=== PATIENT | male | born 1940 | race Caucasian/White ===

== ENCOUNTER 2016-07-25 12:24 | Outpatient (CLI) | payer MEDICARE, MEDICAID | END 2016-07-25 23:59 | DX: E78.5 Hyperlipidemia, unspecified (principal); Z12.5 Encounter for screening for malignant neoplasm of prostate; N40.0 Benign prostatic hyperplasia without lower urinary tract symptoms; D64.9 Anemia, unspecified | CPT/HCPCS: 36415; 80053; 80061; 85025; G0103 ==

== ENCOUNTER 2016-10-06 15:09 | Inpatient (IN) | payer MEDICARE, MEDICAID ==
--- NOTE | 2016-10-06 15:27 | ED Physician Documentation ---
PD HPI GI BLEED - Stated complaint Stated Complaint: RECTAL BLEEDING - Chief complaint Chief Complaint: Abd Pain - History obtained from History obtained from: Patient - History of Present Illness Timing - onset: Yesterday Timing - duration: Days (1) Timing - details: Abrupt onset (onset of dark stool yesterday which continued into today, with now also some red/purple color to it. Having intermittent cramping pains, but no consistent pain. No nausea nor vomiting. Feeling weak and somewhat lightheaded today.) Associated symptoms: Maroon stool, Black/tarry stool, Dizzy. No: Vomiting, Coffee ground emesis, Hematemesis, Constipation, Abdominal pain, Chest pain, Fever, Near syncope / syncope, Loss of appetite, Weight loss Contributing factors: No: Sick contact, Bad food, Travel, Recent antibiotics Similar symptoms before: Has not had sx before Recently seen: Clinic (seen by PMD in office and had digital exam showing blood and dark stool. No hemorrhoids reported.) Review of Systems Constitutional: denies: Fever, Chills Nose: denies: Rhinorrhea / runny nose, Congestion Throat: denies: Sore throat Cardiac: denies: Chest pain / pressure Respiratory: denies: Dyspnea, Cough GI: reports: Bloody / black stool. denies: Abdominal Swelling, Nausea, Vomiting , Constipation : denies: Dysuria, Frequency Neurologic: denies: Near syncope, Altered mental status Endocrine: denies: Weight loss, Easy bruising / bleeding PD PAST MEDICAL HISTORY - Past Medical History Cardiovascular: Hypertension, High cholesterol GI: Colon polyps : Benign prostate hypertrophy, Frequency Derm: Psoriasis - Past Surgical History HEENT: Detached retina repair - Present Medications Home Medications: Ambulatory Orders Medication Instructions Recorded Confirmed Aspirin [Aspir 81] 81 mg PO .FREQ 10/17/12 10/06/16 Multivitamin with Minerals 1 each PO .FREQ 10/17/12 10/06/16 [Myvitalife] [place]-3/Dha/Epa/Fish Oil [Fish Oil 1 each PO .FREQ 10/17/12 10/06/16 1,000 mg Softgel] Pravastatin Sodium 40 mg PO .FREQ 10/17/12 10/06/16 Vit D3-Vit K/Berberine/Hops 1 each PO .FREQ 10/17/12 10/06/16 [Ostera Tablet] hydroCHLOROthiazide [Hydrodiuril] 12.5 mg PO .FREQ 10/17/12 10/06/16 - Allergies Allergies/Adverse Reactions: Allergies Allergy/AdvReac Type Severity Reaction Status Date / Time No Known Drug Allergies Allergy Verified 10/06/16 15:15 PD ED PE NORMAL - Vitals Vital signs reviewed: Yes - General General: Alert and oriented X 3, Well developed/nourished - HEENT HEENT: Ears normal, Moist mucous membranes, Pharynx benign - Neck Neck: Supple, no meningeal sign, No adenopathy, No JVD - Cardiac Cardiac: RRR, No murmur - Respiratory Respiratory: Clear bilaterally - Abdomen Abdomen: Normal bowel sounds, Soft, Non tender, Non distended, No organomegaly - Male Male : Deferred - Rectal Rectal: Deferred (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 ) - Back Back: No CVA TTP - Derm Derm: Normal color, Warm and dry - Extremities Extremities: No tenderness to palpate, Normal ROM s pain, No calf tenderness / cord, Other (1+ edema in right leg, chronic per patient) - Neuro Neuro: Alert and oriented X 3, No motor deficit, Normal speech - Psych Psych: Normal mood, Normal affect Results - Vitals Vitals: Vital Signs - 24 hr 10/06/16 15:14 Temperature 36.5 C Heart Rate 96 Respiratory 18 Rate Blood Pressure 133/79 H O2 Saturation 97 Oxygen O2 Source Room air - Labs Labs: Laboratory Tests 10/06/16 10/06/16 10/06/16 16:00 16:00 16:00 WBC 8.3 RBC 3.32 L Hgb 11.0 L Hct 31.3 L MCV 94.0 MCH 33.0 H MCHC 35.1 RDW 12.4 Plt Count 269 MPV 6.9 L Neut # 5.8 Lymph # 1.8 [place] # 0.6 Eos # 0.1 Baso # 0.0 Absolute Nucleated RBC 0.00 Nucleated RBCs 0.0 Sodium 134 L Potassium 3.5 Chloride 99 L Carbon Dioxide 28 Anion Gap 7.0 BUN 19 Creatinine 0.7 Estimated GFR (MDRD) 110 Glucose 108 H Calcium 8.7 Magnesium 1.7 Total Bilirubin 1.2 H AST 18 ALT 18 Alkaline Phosphatase 53 Total Protein 5.9 L Albumin 3.7 Globulin 2.2 Albumin/Globulin Ratio 1.7 Lipase 15 L Blood Type O POSITIVE Antibody Screen NEGATIVE PD MEDICAL DECISION MAKING - ED course Complexity details: reviewed results, considered differential (Sounds likely upper GI bleed with dark stool and now some blood. Rectal exam done in office did not find hemorrhoids. No abd pain. Prior colonoscopy about 5 years ago showed some polyps and ? diverticula. ), d/w patient Departure - Departure Disposition: ED Place in Observation Clinical Impression: Acute gastrointestinal bleeding Condition: Stable Record reviewed to determine appropriate education?: Yes
[2016-10-06] MEDS ORDERED: SODIUM CHLORIDE 0.9% 1,000 ML IV ONE (15:43)
[2016-10-06] MEDS ORDERED: FAMOTIDINE 20 MG/50 ML 50 ML IV ONE ×2 (15:44→16:06)
[2016-10-06 16:11] LABS: BASOPHILS % (AUTO) 0.2 %; EOSINOPHILS # (AUTO) 0.1 10^3/uL (0.0-0.7); EOSINOPHILS % (AUTO) 0.9 %; HCT - HEMATOCRIT 31.3 % (42.0-52.0); LYMPHOCYTES # (AUTO) 1.8 10^3/uL (1.5-3.5); LYMPHOCYTES % (AUTO) 21.6 %; MEAN CORPUSCULAR HGB CONC 35.1 g/dL (32.0-36.0); MEAN PLATELET VOLUME 6.9 fL (7.4-11.4); MONOCYTES # (AUTO) 0.6 10^3/uL (0.0-1.0); MONOCYTES % (AUTO) 6.8 %; NEUTROPHILS # (AUTO) 5.8 10^3/uL (1.5-6.6); NEUTROPHILS % (AUTO) 70.5 %; RED BLOOD COUNT 3.32 10^6/uL (4.70-6.10); RED CELL DISTRIBUTION WIDTH 12.4 % (12.0-15.0); UNCORRECTED WHITE BLOOD COUNT 8.3 x10^3/uL; WHITE BLOOD COUNT 8.3 x10^3/uL (4.8-10.8)
[2016-10-06 16:21] LABS: ALBUMIN/GLOBULIN RATIO 1.7 (1.0-2.2); BILIRUBIN,TOTAL 1.2 mg/dL (0.2-1.0); CALCIUM 8.7 mg/dL (8.5-10.3); CREATININE 0.7 mg/dL (0.6-1.2); MAGNESIUM 1.7 mg/dL (1.7-2.8); POTASSIUM 3.5 mmol/L (3.5-5.0); TOTAL PROTEIN 5.9 g/dL (6.7-8.2)
[2016-10-06] MEDS ORDERED: SODIUM CHLORIDE FLUSH 0.9% 10 ML SYRINGE IVP PRN (17:38)
[2016-10-06] MEDS ORDERED: SODIUM CHLORIDE 0.9% 1,000 ML IV SCH (18:00)
[2016-10-06 18:03] LABS: BASOPHILS % (AUTO) 0.2 %; EOSINOPHILS # (AUTO) 0.1 10^3/uL (0.0-0.7); EOSINOPHILS % (AUTO) 0.5 %; HCT - HEMATOCRIT 31.2 % (42.0-52.0); HGB - HEMOGLOBIN 10.8 g/dL (14.0-18.0); LYMPHOCYTES # (AUTO) 1.9 10^3/uL (1.5-3.5); LYMPHOCYTES % (AUTO) 18.3 %; MEAN CORPUSCULAR HEMOGLOBIN 32.7 pg (27.0-31.0); MEAN CORPUSCULAR HGB CONC 34.7 g/dL (32.0-36.0); MEAN PLATELET VOLUME 6.8 fL (7.4-11.4); MONOCYTES # (AUTO) 0.6 10^3/uL (0.0-1.0); MONOCYTES % (AUTO) 5.4 %; NEUTROPHILS # (AUTO) 8.1 10^3/uL (1.5-6.6); NEUTROPHILS % (AUTO) 75.6 %; RED BLOOD COUNT 3.32 10^6/uL (4.70-6.10); RED CELL DISTRIBUTION WIDTH 12.6 % (12.0-15.0); UNCORRECTED WHITE BLOOD COUNT 10.7 x10^3/uL; WHITE BLOOD COUNT 10.7 x10^3/uL (4.8-10.8)
[2016-10-06 18:15] LABS: ALBUMIN/GLOBULIN RATIO 1.7 (1.0-2.2); BILIRUBIN,TOTAL 1.6 mg/dL (0.2-1.0); CALCIUM 8.5 mg/dL (8.5-10.3); CREATININE 0.8 mg/dL (0.6-1.2); POTASSIUM 3.7 mmol/L (3.5-5.0); TOTAL PROTEIN 6.1 g/dL (6.7-8.2)
[2016-10-06] MEDS: SODIUM CHLORIDE FLUSH 0.9% 10 ML SYRINGE IVP SCH (19:05)
[2016-10-06] MEDS: PANTOPRAZOLE 40 MG VIAL IV SCH ×2 (19:07→23:38)
--- NOTE | 2016-10-06 19:34 | PROVIDER PROGRESS NOTE ---
Hospitalist Cross-cover Note - Cross-Cover Note Cross-Cover Note: ADdendum to H/P Orthostatic VS obtaine d on admission to floor + orthostatics lying HR 90 150/70 standing HR 118 127/83 Increased IVF rate (NS) to 150 cc/hr
[2016-10-06] MEDS: SODIUM/POTASSIUM/MAG SULFATES 354 ML PREP KIT PO SCH (19:45)
--- NOTE | 2016-10-06 19:46 | HISTORY & PHYSICAL EXAMINATION ---
DATE OF ADMISSION: 10/06/2016 PRIMARY CARE PROVIDER: SUSAN Terry. CHIEF COMPLAINT: Black stools the day prior to admission and black stools mixed with red blood today. 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 He yesterday noticed that his stools were black and in retrospect he thinks perhaps his stools were looser over a few days. Today he noticed that they were black with what he calls obviously blood along with it. In the emergency room, there was report of maroon stool, but the patient called this red. I did not see it myself. He has noticed some modest lightheadedness when he was in the upright position. He denies any shortness of breath, diaphoresis, or chest pain with the blood loss. He has no prior history of a GI bleed. He did have a colon polyp removed in September of 2012, approximately 4 years ago. He is on daily aspirin, baby aspirin, and he occasionally takes a full aspirin just for cardiac protection although he has no CAD history. He denies taking NSAIDs. He is not on any anticoagulants. He does drink alcohol approximately 3 pints of beer daily for many years and an occasional glass of wine. He has never had any known problems with his liver. On presentation to the emergency room he was hemodynamically stable, blood pressure 133/79 with a heart rate of 96. Orthostatics were not checked in the emergency room. His admission lab work was notable for a hemoglobin of 11, creatinine of 31.3 and INR was not obtained. Dr. Yanes of General Surgery was consulted and he will do an endoscopy and colonoscopy tomorrow. PAST MEDICAL HISTORY: 1. Hypertension for which he is on a thiazide diuretic. 2. Hypercholesterolemia. 3. History of colon polyps as above /polypectomy September 2012. 4. Benign prostatic hypertrophy. 5. History of prostate cancer status post brachytherapy in 2008. 6. History of psoriasis. 7. History of irregular heart rate, which he reports is resolved and he has seen a clinical engineering manager for this. 8. 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 MEDICATIONS: 1. Aspirin 81 mg. once daily. 2. Multivitamin once daily. 3. [place] 3 fish oil daily. 4. Pravachol 40 mg. once daily. 5. Vitamin D3 supplement called Ostera which has vitamin D3, vitamin K, Berberine and Hops. 6. Hydrochlorothiazide 12.5 mg. once daily. ALLERGIES: HE HAS NO KNOWN DRUG ALLERGIES. 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 He lives here with his . HABITS: He does as above drink approximately 3 pints of beer daily and occasional glass of wine. He smokes marijuana several times throughout the day. SURGICAL HISTORY: Includes polypectomy and retinal detachment repair and blindness of the right eye. FAMILY HISTORY: Both his parents lived into their 90s. He is uncertain of the actual cause of , one had dementia. There is no history of cancer, coronary artery disease, stroke, or diabetes. REVIEW OF SYSTEMS: He has had possibly a 5 pound weight loss over time, nothing substantial. Denies any fevers, night sweats. 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 CARDIOVASCULAR: He has a history of some sort of arrhythmia which he says has resolved. He is not on any rate control agents or dysrhythmic agent. He has had no chest pain, palpitations, near syncope other than the lightheadedness noted above today. He does have varicose veins on the right leg. RESPIRATORY: No cough, wheezing, or shortness of breath. GASTROINTESTINAL: As per the HPI. GENITOURINARY: He does have some hesitancy with his prior brachytherapy, but no new changes. No dysuria. MUSCULOSKELETAL: No falls, no new weakness. NEUROLOGIC: No weakness, discoordination, or paresthesias. No confusion or memory loss. PSYCHIATRIC: He denies any mood disturbance. ENDOCRINE: No excessive thirst or hunger. HEME: He has not noticed any easy bruising or bleeding. PHYSICAL EXAMINATION: VITAL SIGNS: Afebrile, heart rate 86, blood pressure 148/68, respiratory rate 18 , 99% oxygenation on room air. HEAD, EYES, EARS, NOSE AND THROAT: He is normocephalic, atraumatic. He has long hair in a ponytail. He is wearing glasses. The blindness in the right eye is not evident on exam. His pupils are equal and reactive. Extraocular movements, his eyes track evenly. His oral mucosa is moist. He has his own teeth, upper and lower still. NECK: Supple. Carotids are +2 with no bruit. CARDIAC: His heart has a regular S1, S2 with no murmur, rub or gallop. Peripheries notable for warm. He does have varicosities on the right leg with a TEDS-type sock. CHEST: Clear to auscultation anteriorly and posteriorly and respirations are unlabored. He has no CVA tenderness and no spine tenderness. ABDOMEN: Not obese. He has positive bowel sounds. It is soft, nontender. Liver edge is appreciated, not enlarged and not nodular, nontender. He has no epigastric tenderness. GENITALIA: Not examined. EXTREMITIES: Notable for mild trace to +1 edema on the right with varicose veins. DIAGNOSTIC STUDIES: White count 8.3, hemoglobin 11, hematocrit 31.32, 269,000 platelets. Sodium 134, potassium 3.5, chloride 99, bicarbonate 28, BUN 19, creatinine 0.7, glucose 108, total bilirubin was 1.2 and a subsequent was 1.6, transaminases are normal at 19. AST and ALT 17, total protein 55, albumin 3.8. There are no imaging studies in the emergency room. ASSESSMENT AND PLAN: 1. Gastrointestinal bleed. This is likely a lower source. However, he does drink alcohol and does take daily aspirin so upper is conceivable although there is no elevated BUN. Dr. Yanes will be doing EGD and colonoscopy tomorrow. He will start his bowel prep tonight, he will have clear liquids and then be NPO after midnight. For the gastrointestinal bleed he is hemodynamically stable in the ED although the Hgb11/31.3 is certainly low for a male and may reflect slow chronic loss in addition to the acute loss. He has already received normal saline in the emergency room. We will continue normal saline overnight. Type and cross has been ordered. We will hold his aspirin and orthostatics will be checked on admission for better idea of volume loss. Orthostatics obtained while this was being dictated were positive suggesting active bleeding. HR lying 90 150/70 HR standing 118 BP 127/83. Will increase IVF rate to 150cc/hr and ensure that 2 u are available at all times . confirmed w/ blood bank that T+S was done He will have q.6h. hemoglobin and hematocrit. Orthostatics will be rechecekd in the am. Sending INR, but albumin , and transaminases , bilil do not suggest advanced liver dz. Addendum; INR 1.0 2. Hypertension. It is well controlled at home only on a thiazide diuretic, but that will be held on admission and can be resumed on discharge depending the findings. 3. Alcohol use. He has modest daily use of approximately 3 pints of beer daily. He denies history of withdrawal in the remote past when he did stop for some time. We will, however, start CIWA just in the event that there are any withdrawal symptoms. If the endoscopy reflects gastritis or other possibly alcohol related source, will advocate cessation. 4. Hyperlipidemia. He will continue his Pravachol by the time of discharge. 5. COR STATUS. HE IS A FULL COR. 6. Venous thromboembolism prophylaxis. He will have SCDs, but he is expected to be ambulatory soon after the procedures tomorrow pending findings. JOB #: [id number] EXT JOB #:[id number] JOSÉ ANTONIO
[2016-10-06 21:26] LABS: PT - PROTHROMBIN TIME 11.8 secs (9.9-12.6)
[2016-10-07 00:17] LABS: BASOPHILS % (AUTO) 0.4 %; EOSINOPHILS % (AUTO) 0.4 %; HCT - HEMATOCRIT 25.8 % (42.0-52.0); LYMPHOCYTES # (AUTO) 1.5 10^3/uL (1.5-3.5); LYMPHOCYTES % (AUTO) 19.1 %; MEAN CORPUSCULAR HEMOGLOBIN 32.8 pg (27.0-31.0); MEAN CORPUSCULAR HGB CONC 34.7 g/dL (32.0-36.0); MEAN CORPUSCULAR VOLUME 94.4 fL (80.0-94.0); MEAN PLATELET VOLUME 7.5 fL (7.4-11.4); MONOCYTES # (AUTO) 0.4 10^3/uL (0.0-1.0); MONOCYTES % (AUTO) 5.4 %; NEUTROPHILS # (AUTO) 5.9 10^3/uL (1.5-6.6); NEUTROPHILS % (AUTO) 74.7 %; RED BLOOD COUNT 2.73 10^6/uL (4.70-6.10); RED CELL DISTRIBUTION WIDTH 12.3 % (12.0-15.0); UNCORRECTED WHITE BLOOD COUNT 7.9 x10^3/uL; WHITE BLOOD COUNT 7.9 x10^3/uL (4.8-10.8)
[2016-10-07] MEDS: SODIUM CHLORIDE 0.9% 1,000 ML IV SCH ×4 (02:59→14:24)
[2016-10-07] MEDS: SODIUM/POTASSIUM/MAG SULFATES 354 ML PREP KIT PO SCH (05:04)
[2016-10-07 06:21] LABS: BASOPHILS % (AUTO) 0.2 %; EOSINOPHILS # (AUTO) 0.1 10^3/uL (0.0-0.7); EOSINOPHILS % (AUTO) 1.1 %; HCT - HEMATOCRIT 23.8 % (42.0-52.0); HGB - HEMOGLOBIN 8.2 g/dL (14.0-18.0); LYMPHOCYTES # (AUTO) 1.7 10^3/uL (1.5-3.5); LYMPHOCYTES % (AUTO) 31.8 %; MEAN CORPUSCULAR HEMOGLOBIN 32.4 pg (27.0-31.0); MEAN CORPUSCULAR HGB CONC 34.6 g/dL (32.0-36.0); MEAN CORPUSCULAR VOLUME 93.6 fL (80.0-94.0); MEAN PLATELET VOLUME 7.1 fL (7.4-11.4); MONOCYTES # (AUTO) 0.5 10^3/uL (0.0-1.0); MONOCYTES % (AUTO) 8.4 %; NEUTROPHILS # (AUTO) 3.2 10^3/uL (1.5-6.6); NEUTROPHILS % (AUTO) 58.5 %; RED BLOOD COUNT 2.55 10^6/uL (4.70-6.10); RED CELL DISTRIBUTION WIDTH 12.5 % (12.0-15.0); UNCORRECTED WHITE BLOOD COUNT 5.5 x10^3/uL; WHITE BLOOD COUNT 5.5 x10^3/uL (4.8-10.8)
[2016-10-07] MEDS: SODIUM CHLORIDE FLUSH 0.9% 10 ML SYRINGE IVP SCH ×2 (07:06→08:09)
[2016-10-07] MEDS: PANTOPRAZOLE 40 MG VIAL IV SCH (08:05)
--- NOTE | 2016-10-07 08:31 | PROVIDER PROGRESS NOTE ---
Subjective - Prog Note Date Prog Note Date: 10/07/16 Prog Note Time: 08:30 - Subjective Pt reports feeling: No change (very slightly lightheaded with standing With the prep, BM's have continued to have blood, he feels they are less bloody as the night progressed) Current Medications - Current Medications Current Medications: Active Medications Generic Name Dose Route Start Last Admin Trade Name Freq PRN Reason Stop Dose Admin Sodium Chloride 1,000 mls @ 150 mls/hr 10/06/16 19:34 10/07/16 06:47 Normal Saline 0.9% IV 150 mls/hr .[id number] SHREYAS Administration Pantoprazole Sodium 80 mg 10/06/16 17:49 10/07/16 08:05 Protonix IV 80 mg BID SHREYAS Administration Polyethylene Glycol 17 gm 10/07/16 09:00 Miralax PO DAILY SHREYAS Sodium Chloride 10 ml 10/06/16 17:38 Normal Saline Flush 0.9% IVP PRN PRN NEEDED PER PROVIDER ORDERS Sodium Chloride 10 ml 10/06/16 22:00 10/07/16 08:09 Normal Saline Flush 0.9% IVP 10 ml Q8HR SHREYAS Administration Aspirin [Aspir 81] 81 mg PO .FREQ 10/17/12 Multivitamin with Minerals [Myvitalife] 1 each PO .FREQ 10/17/12 [place]-3/Dha/Epa/Fish Oil [Fish Oil 1,000 mg Softgel] 1 each PO .FREQ 10/17/12 Pravastatin Sodium 40 mg PO .FREQ 10/17/12 Vit D3-Vit K/Berberine/Hops [Ostera Tablet] 1 each PO .FREQ 10/17/12 hydroCHLOROthiazide [Hydrodiuril] 12.5 mg PO .FREQ 10/17/12 Objective - Vital Signs/Intake & Output Reviewed Vital Signs: Yes Vital Signs: Vital Signs x48h Temp Pulse Resp BP Pulse Ox 10/07/16 08:02 123/74 10/07/16 07:53 36.7 C 76 16 123/74 97 10/07/16 05:06 36.7 C 74 16 111/65 97 orthostatics this morning HR lying 76 standing 96 blood pressure lying 120/ standing 113/ Intake & Output: Intake & Output 10/04/16 10/05/16 10/06/16 10/07/16 23:59 23:59 23:59 23:59 Intake Total 1250 1951 Output Total 50 1 Balance 1200 1950 - Objective General Appearance: positive: No acute distress, Other (modest general pallor compared with yesterday) Respiratory: positive: No respiratory distress, Breath sounds nml Cardiovascular: positive: Regular rate & rhythm (no tachycardia) Abdomen: positive: Nml bowel sounds, No distention, Other (some stool from prep seen on bed sheets, brown with surrounding tint of red). negative: Tenderness Skin: positive: Warm, Dry. negative: Diaphoresis Neurologic/Psychiatric: positive: Oriented x3, Mood/affect nml - Lab Results Fish Bones: 10/07/16 12:07 10/06/16 17:59 Other Labs: Lab Results x24hrs 10/07/16 10/07/16 10/06/16 Range/Units 06:05 00:00 17:59 WBC 5.5 7.9 (4.8-10.8) x10^3/uL RBC 2.55 L 2.73 L (4.70-6.10) 10^6/uL Hgb 8.2 L 9.0 L (14.0-18.0) g/dL Hct 23.8 L 25.8 L (42.0-52.0) % MCV 93.6 94.4 H (80.0-94.0) fL MCH 32.4 H 32.8 H (27.0-31.0) pg MCHC 34.6 34.7 (32.0-36.0) g/dL RDW 12.5 12.3 (12.0-15.0) % Plt Count 247 246 (130-450) 10^3/uL MPV 7.1 L 7.5 (7.4-11.4) fL Neut # 3.2 5.9 (1.5-6.6) 10^3/uL Lymph # 1.7 1.5 (1.5-3.5) 10^3/uL [place] # 0.5 0.4 (0.0-1.0) 10^3/uL Eos # 0.1 0.0 (0.0-0.7) 10^3/uL Baso # 0.0 0.0 (0.0-0.1) 10^3/uL Absolute Nucleated RBC 0.00 0.00 x10^3/uL Nucleated RBCs 0.0 0.0 /100WBC PT (9.9-12.6) secs INR (0.8-1.2) Sodium (135-145) mmol/L Potassium (3.5-5.0) mmol/L Chloride (101-111) mmol/L Carbon Dioxide (21-32) mmol/L Anion Gap (6-13) BUN (6-20) mg/dL Creatinine (0.6-1.2) mg/dL Estimated GFR (MDRD) (>89) Glucose (70-100) mg/dL Calcium (8.5-10.3) mg/dL Total Bilirubin (0.2-1.0) mg/dL AST (10-42) IU/L ALT (10-60) IU/L Alkaline Phosphatase (42-121) IU/L Total Protein (6.7-8.2) g/dL Albumin (3.2-5.5) g/dL Globulin (2.1-4.2) g/dL Albumin/Globulin Ratio (1.0-2.2) Blood Type Recheck O POSITIVE 10/06/16 10/06/16 10/06/16 Range/Units 17:59 17:59 17:59 WBC 10.7 (4.8-10.8) x10^3/uL RBC 3.32 L (4.70-6.10) 10^6/uL Hgb 10.8 L (14.0-18.0) g/dL Hct 31.2 L (42.0-52.0) % MCV 94.0 (80.0-94.0) fL MCH 32.7 H (27.0-31.0) pg MCHC 34.7 (32.0-36.0) g/dL RDW 12.6 (12.0-15.0) % Plt Count 298 (130-450) 10^3/uL MPV 6.8 L (7.4-11.4) fL Neut # 8.1 H (1.5-6.6) 10^3/uL Lymph # 1.9 (1.5-3.5) 10^3/uL [place] # 0.6 (0.0-1.0) 10^3/uL Eos # 0.1 (0.0-0.7) 10^3/uL Baso # 0.0 (0.0-0.1) 10^3/uL Absolute Nucleated RBC 0.00 x10^3/uL Nucleated RBCs 0.0 /100WBC PT 11.8 (9.9-12.6) secs INR 1.0 (0.8-1.2) Sodium 135 (135-145) mmol/L Potassium 3.7 (3.5-5.0) mmol/L Chloride 99 L (101-111) mmol/L Carbon Dioxide 27 (21-32) mmol/L Anion Gap 9.0 (6-13) BUN 18 (6-20) mg/dL Creatinine 0.8 (0.6-1.2) mg/dL Estimated GFR (MDRD) 94 (>89) Glucose 115 H (70-100) mg/dL Calcium 8.5 (8.5-10.3) mg/dL Total Bilirubin 1.6 H (0.2-1.0) mg/dL AST 19 (10-42) IU/L ALT 17 (10-60) IU/L Alkaline Phosphatase 55 (42-121) IU/L Total Protein 6.1 L (6.7-8.2) g/dL Albumin 3.8 (3.2-5.5) g/dL Globulin 2.3 (2.1-4.2) g/dL Albumin/Globulin Ratio 1.7 (1.0-2.2) Blood Type Recheck - Diagnostic Imaging Diagnostic Imaging Results: positive: Final report reviewed, Other (discussed result of EGD/colonoscopy w/ Dr. Yanes EGD; trace bleeding gastritis in gastric antrum; multiple biopsies Colonoscopy: SEVERE diverticulosis in transverse colon, sigmoid colon, and descending colon with angulation and colonic narroiwing. no discrete area of active oozing of blood noted.) Assessment/Plan - Problem List (1) GI bleeding Impression: GI bleed persists \Hct drifting down, some of this is dilutional, but clearly still having blood loss modestly orthostatic. Hgb still over 8, no symptoms (other than mild light headed when up), 2 units of blood are available if drifts down closer to 7 or more symptomatic continue PPI IV until results continue IVF at 150cc/hr for EGD/colonoscope today Dr. Yanes discussed results w/ me EGD; no significant findings, perhaps mild gastritis antrum Colonoscope notable for EXTENSIVE diverticuli; no obvious oozing divertic No further bleeding currently, will continue clears overnight reduce Hgb/hct to q 12 IF he has recurrent bleeding, RN to contact hospitalist, and check orthostatics will continue to hold his thiazide If no further bleeding d/c home with repeat colonoscopy with better prep in a few wks If new bleeding, may need transfer for more extensive evaluation including small bowel (? tagged RBC, capusule, in institution that can do intervention eg embolization Qualifiers: GI bleed type/associated pathology: unspecified gastrointestinal hemorrhage type Qualified Code(s): K92.2 - Gastrointestinal hemorrhage, unspecified
[2016-10-07] MEDS: POLYETHYLENE GLYCOL 3350 17 GM PACKET PO SCH (11:15)
[2016-10-07 12:12] LABS: BASOPHILS % (AUTO) 0.4 %; EOSINOPHILS % (AUTO) 0.6 %; HCT - HEMATOCRIT 22.9 % (42.0-52.0); HGB - HEMOGLOBIN 7.9 g/dL (14.0-18.0); LYMPHOCYTES # (AUTO) 1.6 10^3/uL (1.5-3.5); LYMPHOCYTES % (AUTO) 31.6 %; MEAN CORPUSCULAR HEMOGLOBIN 32.5 pg (27.0-31.0); MEAN CORPUSCULAR HGB CONC 34.4 g/dL (32.0-36.0); MEAN CORPUSCULAR VOLUME 94.5 fL (80.0-94.0); MEAN PLATELET VOLUME 6.9 fL (7.4-11.4); MONOCYTES # (AUTO) 0.4 10^3/uL (0.0-1.0); NEUTROPHILS # (AUTO) 2.9 10^3/uL (1.5-6.6); NEUTROPHILS % (AUTO) 59.4 %; RED BLOOD COUNT 2.42 10^6/uL (4.70-6.10); RED CELL DISTRIBUTION WIDTH 12.4 % (12.0-15.0); UNCORRECTED WHITE BLOOD COUNT 4.9 x10^3/uL; WHITE BLOOD COUNT 4.9 x10^3/uL (4.8-10.8)
[2016-10-07] MEDS ORDERED: LACTATED RINGERS 1,000 ML IV ONE (12:13)
[2016-10-07] MEDS ORDERED: BENZOCAINE/TETRACAINE/BUTAMBEN SPRAY 56 GM TOP ONE (12:22)
[2016-10-07] MEDS ORDERED: fentaNYL 100 MCG/2 ML VIAL IVP ONE (12:30)
[2016-10-07] MEDS ORDERED: LIDOCAINE-MPF 2% 5 ML VIAL IM ONE (12:30)
[2016-10-07] MEDS ORDERED: PROPOFOL 200 MG/20 ML VIAL IVP ONE (12:30)
[2016-10-07] MEDS ORDERED: MIDAZOLAM 2 MG/2 ML VIAL IVP ONE (12:30)
[2016-10-07] MEDS ORDERED: SIMETHICONE 40 MG/0.6 ML 30 ML BOTTLE PO ONE (13:19)
[2016-10-08 06:18] LABS: HCT - HEMATOCRIT 20.2 % (42.0-52.0)
[2016-10-08] MEDS: SODIUM CHLORIDE FLUSH 0.9% 10 ML SYRINGE IVP SCH ×3 (06:54→07:24)
[2016-10-08] MEDS: SODIUM CHLORIDE 0.9% 1,000 ML IV SCH ×2 (06:54→06:55)
[2016-10-08] MEDS: POLYETHYLENE GLYCOL 3350 17 GM PACKET PO SCH (07:23)
[2016-10-08] MEDS ORDERED: diphenhydrAMINE 25 MG CAPSULE PO SCH (08:12)
[2016-10-08] MEDS ORDERED: ACETAMINOPHEN 325 MG TABLET PO SCH (08:12)
--- NOTE | 2016-10-08 10:40 | Discharge Plan ---
Discharge Plan Disposition: 01 Home, Self Care Condition: Stable Prescriptions: Ferrous Sulfate 325 mg PO DAILY #30 tablet Diet: Regular (high fiber goal daily BM) Activity Restrictions: No Restrictions Shower Restrictions: No Driving Restrictions: No Weight Bearing: Full Weight Additional Instructions or Follow Up instructions: Gastrointestinal bleeding -Likely lower GI source Work up of GI bleeding included -blood count (hemoglobin hematocrit) -You were anemic at presentation 31.3 (normal for a male is ~ 15/ 45 or higher -With blood loss (and some dilution from IVFluid) your count was 7.0/20.2 and you received 1 unit packed red blood cell transfusion -Your platelets (which clot blood) were normal -you did not have an abnormal clotting time (INR) You had an Endoscopy ; notable only for maybe very mild gastritis (inflammation of stomach lining) which would likely be from alcohol, or aspirin or a combination of the two AND a Colonoscopy that did not identify an obvious active source of bleeding BUT you had MANY diverticuli thru out the colon. These can bleed. (they have an arterial supply , and if and when they do bleed, they can bleed alot.) So these are highly suspect The bowel prep wasnt fully clear (there was still some stool interfering with the view of the colonoscope. It is possible that a polyp was hidden, and you should have a repeat colonoscopy in ~ 3 months. (obviously sooner if you redevelop bleeding, but it you have recurrent bleeding you should go to the hospital anyway.) If you redevelop Black stool, or black sticky stool, or maroon stool or obvious blood in stool or clots return to the ED. The ED would determine if you should be transferred to a larger facility since the initial endoscopy and colonoscopy did not identify an obvious source after discussion with the surgeon stone decorator/ and hospitalist service (depending on what your symptoms and blood count are when here Hold off on HCTZ/hydrochlorthiazide) which is a diuretic/pulls off volume in case bleed resumes follow up with Dr Calvert this week You may need a referral for the repeat colonoscopy Stop aspirin Try to reduce alcohol, if any of your anemia was from chronic loss from inflammed stomach lining No Smoking: If you smoke, Please STOP! Call for help. Follow-up with: Asmita Jaffe ARNP [Primary Care Provider] - 1 Week (Reeval for any suggestion of continued GI blood loss consider recheck hemoglobin/hct ~ 1 week reevaluate blood pressure (we advised holding off on hctz) in case bleed resumes )
[2016-10-08 13:01] LABS: HCT - HEMATOCRIT 24.9 % (42.0-52.0); HGB - HEMOGLOBIN 8.6 g/dL (14.0-18.0); MEAN CORPUSCULAR HGB CONC 34.5 g/dL (32.0-36.0); MEAN CORPUSCULAR VOLUME 92.6 fL (80.0-94.0); MEAN PLATELET VOLUME 6.8 fL (7.4-11.4); RED BLOOD COUNT 2.69 10^6/uL (4.70-6.10); RED CELL DISTRIBUTION WIDTH 13.8 % (12.0-15.0); WHITE BLOOD COUNT 4.8 x10^3/uL (4.8-10.8)
[2016-10-08 13:29] VITALS: BP 149/88
--- NOTE | 2016-10-10 08:37 | DISCHARGE SUMMARY ---
DATE OF ADMISSION: 10/06/2016 DATE OF DISCHARGE: 10/08/2016 PRIMARY CARE PROVIDER: Asmita Jaffe; and Radhames Calvert MD PRINCIPAL DISCHARGE DIAGNOSES 1. Gastrointestinal bleed, likely lower. 2. Acute blood loss anemia. 3. Hypertension. 4. Alcohol use. CONSULTATIONS: Jared Yanes MD, of General Surgery. PROCEDURES 1. Endoscopy. 2. Colonoscopy. DIAGNOSTIC IMAGING STUDIES: None. DIAGNOSTIC LABORATORY STUDIES: Admission hemoglobin and hematocrit were 10.8 and 31.2. White count 10.7. Platelets 298,000. During the course of serial hematocrits, his fermin on 10/08/2016 was 7.0 and 20.2 hemoglobin and hematocrit ; after 1 unit of packed red blood cells 8.6 and 24.9, which was checked approximately 20 minutes after transfusion complete. INR was 1.0. Sodium 134, potassium 3.5, chloride 99, bicarbonate 28, BUN 19, creatinine 0.7, glucose 108. AST and ALT are 18 and 18, total bilirubin 1.2, albumin 3.7, essentially unchanged on a recheck on the evening of 10/06/2016. Cultures for H pylori from the endoscopy are pending. DETAILS OF THE EGD: Trace bleeding gastritis in the gastric antrum. Biopsies obtained and sent for histology. DETAILS OF THE COLONOSCOPY: Severe diverticulitis in the transverse, sigmoid, and descending colon with associated angulation and colonic narrowing. There was no discrete area of active bleeding or blood noted. No signs of active bleeding in the colon were found. Of note, the prep was not ideal with some residual stool. BRIEF HOSPITAL COURSE BY PROBLEM PROBLEM #1: Gastrointestinal bleed. The patient is a 75-year-old white male with no prior history of GI bleeding, who presented to the emergency room after having black stool the day prior to admission and then noticing black stool and some red blood per rectum on the day of presentation. He denied any associated chest pain, shortness of breath, or diaphoresis, although he did feel very mildly lightheaded. Of note, he is not on any antiplatelet agents other than baby aspirin and occasional full-dose aspirin. He does drink, with no lab findings or exam findings suggestive of cirrhosis with an INR of 1.0. Admission hemoglobin and hematocrit were 11 and 31.3, and he was modestly orthostatic on vital signs. He was evaluated by Dr. Jared Yanes of General Surgery, who performed an EGD and colonoscopy with results as above. Although he had extensive diverticula noted in the large bowel, there was no clear stigmata of recent bleed, although they are certainly highly suspect as the source. The slight gastritis in the antrum is the unlikely source of acute bleeding, although he could have some mild chronic blood loss from that area; and of note, his anemia is not microcytic at this time, suggesting this is an acute blood loss. Serial hematocrits were measured, and he did have a consistent decline in his counts and remained mildly orthostatic. Although the bleeding did stop following the endoscopy, there was no further red blood per rectum or melena. Since the patient's hemoglobin did decrease down to 7.0, and we could not identify the source of bleeding, he was highly encouraged to accept the unit of blood once his hemoglobin was 7.0 especially with the risk that the unidentified source of bleeding could start agin.. He was initially resistant to this and somewhat anxious, but after discussion of the risks and benefits, he agreed to a unit and did feel considerably improved regarding his lightheadedness on standing, and his pallor improved. He is aware to hold off on his thiazide diuretic until it is certain that he has not had any further blood loss. He is also aware to stop his aspirin until it is clear that this has not recurred. He is aware that he will need a repeat colonoscopy in approximately 3 months to reevaluate the gut with a better prep. If he has a recurrence of this, given we were unable to find the source of bleeding, depending on his clinical status and the degree of bleeding on a re- presentation, he may need to be referred to an outside center in case this represents a small-bowel bleed. PROBLEM #2: Hypertension. At home he is on a thiazide diuretic. Even though his blood pressure was in a reasonable range at the time of discharge, he is advised to hold off on that in case he has recurrent bleeding to avoid further volume loss. PROBLEM #3: Alcohol use. He does drink approximately 3 pints of beer daily, and he is advised to cut down on that in case the gastritis in the antrum is related. DISCHARGE MEDICATIONS 1. He is to hold his aspirin, which was 81 mg daily. 2. He can continue his Pravachol 40 mg each evening. 3. Wharton-3 acid or Lovaza 1 gram p.o. daily. 4. Multivitamin 1 tablet daily. 5. Cholecalciferol 1000 units daily. 6. Latanoprost 0.005 drops left eye each evening for history of retinal detachment. 7. Patient is advised to start ferrous sulfate 325 mg once daily. FOLLOWUP 1. The patient should follow up with Asmita Jaffe some time next week, at least with a phone call, to have blood pressure reevaluated to see if he can resume his HCTZ. 2. Also would recommend having a repeat hemoglobin and hematocrit in approximately 1 week to ensure stability of his hemoglobin, and if he needs a referral for a repeat colonoscopy for better visualization of his large bowel with a better prep. PHYSICAL EXAMINATION ON THE DAY OF DISCHARGE VITAL SIGNS: He is afebrile 36.4, heart rate 76. Blood pressure 149/88, that is immediately following red cell transfusion. Respiratory rate 16, oxygen 100% on room air. GENERAL: Patient is a pleasant, thin, tall, older gentleman with long hair. This morning he was seen in bed with a general pallor, and following a unit of red cells, he is considerably improved pallor, with more pink in his cheeks. He is alert, oriented, appropriate. He was anxious this morning, following the transfusion is much more relieved following an unremarkable transfusion. HEAD, EARS, EYES, NOSE, AND THROAT: Sclerae are anicteric. CHEST: Clear to auscultation with unlabored respirations. HEART: Regular S1, S2 with no murmur, rub, or gallop. ABDOMEN: Soft, nondistended, nontender; specifically there is no epigastric tenderness. EXTREMITIES: Notable for no edema. JOB #: [id number] EXT JOB #:[id number] [facility]
== END 2016-10-08 13:27 | disposition home or self-care (01) | DRG 378 ==
LOC: ED 15:09 → MS 17:38
PROVIDERS: ADMIT Nurse Practitioner; ATTEND Nurse Practitioner
PROC: 0DJD8ZZ Inspection of Lower Intestinal Tract, Via Natural or Artificial Opening Endoscopic (ICD-10-PCS; 2016-10-07)
PROC: 0DB78ZX Excision of Stomach, Pylorus, Via Natural or Artificial Opening Endoscopic, Diagnostic (ICD-10-PCS; principal; 2016-10-07 12:30)
PROC: 0W3P8ZZ Control Bleeding in Gastrointestinal Tract, Via Natural or Artificial Opening Endoscopic (ICD-10-PCS; 2016-10-07 12:30)
PROC: 30233N1 Transfusion of Nonautologous Red Blood Cells into Peripheral Vein, Percutaneous Approach (ICD-10-PCS; 2016-10-08)
DX: K92.1 Melena (principal); K29.71 Gastritis, unspecified, with bleeding; D62 Acute posthemorrhagic anemia; K57.31 Diverticulosis of large intestine without perforation or abscess with bleeding; I10 Essential (primary) hypertension; I83.91 Asymptomatic varicose veins of right lower extremity; E78.5 Hyperlipidemia, unspecified; N40.1 Benign prostatic hyperplasia with lower urinary tract symptoms; R39.11 Hesitancy of micturition; R35.0 Frequency of micturition; H54.41 Blindness, right eye, normal vision left eye; Z86.79 Personal history of other diseases of the circulatory system; Z79.82 Long term (current) use of aspirin; Z72.89 Other problems related to lifestyle; Z86.010 Personal history of colon polyps; Z85.46 Personal history of malignant neoplasm of prostate
CPT/HCPCS: 36415; 80053; 82270; 83690; 83735; 85014; 85018; 85025; 85610; 86850; 86900; 86901; 86920; 87045; 87046; 87077; 87081; 87493; 88305; 88342; 96365; 99284

== ENCOUNTER 2017-01-11 14:27 | Outpatient (CLI) | payer MEDICARE, MEDICAID ==
[2017-01-11 17:48] LABS: BASOPHILS % (AUTO) 0.5 %; EOSINOPHILS # (AUTO) 0.1 10^3/uL (0.0-0.7); EOSINOPHILS % (AUTO) 2.1 %; HCT - HEMATOCRIT 36.8 % (42.0-52.0); HGB - HEMOGLOBIN 12.1 g/dL (14.0-18.0); LYMPHOCYTES # (AUTO) 1.7 10^3/uL (1.5-3.5); LYMPHOCYTES % (AUTO) 29.4 %; MEAN CORPUSCULAR HEMOGLOBIN 29.3 pg (27.0-31.0); MEAN CORPUSCULAR HGB CONC 32.8 g/dL (32.0-36.0); MEAN CORPUSCULAR VOLUME 89.2 fL (80.0-94.0); MEAN PLATELET VOLUME 7.7 fL (7.4-11.4); MONOCYTES # (AUTO) 0.5 10^3/uL (0.0-1.0); MONOCYTES % (AUTO) 7.9 %; NEUTROPHILS # (AUTO) 3.5 10^3/uL (1.5-6.6); NEUTROPHILS % (AUTO) 60.1 %; RED BLOOD COUNT 4.12 10^6/uL (4.70-6.10); RED CELL DISTRIBUTION WIDTH 14.8 % (12.0-15.0); UNCORRECTED WHITE BLOOD COUNT 5.9 x10^3/uL; WHITE BLOOD COUNT 5.9 x10^3/uL (4.8-10.8)
[2017-01-11 18:12] LABS: ALBUMIN/GLOBULIN RATIO 1.6 (1.0-2.2); BILIRUBIN,TOTAL 0.8 mg/dL (0.2-1.0); CREATININE 0.9 mg/dL (0.6-1.2); POTASSIUM 3.9 mmol/L (3.5-5.0); TOTAL PROTEIN 6.7 g/dL (6.7-8.2)
== END 2017-01-11 14:28 | disposition home or self-care (01) ==
LOC: LAB.F 14:27
PROVIDERS: ATTEND Nurse Practitioner Family
DX: K92.2 Gastrointestinal hemorrhage, unspecified (principal); C61 Malignant neoplasm of prostate
CPT/HCPCS: 36415; 80053; 84153; 84443; 85025

== ENCOUNTER 2017-06-12 08:00 | Outpatient (CLI) | payer MEDICARE, MEDICAID ==
[2017-06-12 18:41] LABS: CREATININE 0.9 mg/dL (0.6-1.2)
== END 2017-06-12 08:01 | disposition home or self-care (01) ==
LOC: LAB.F 08:00
PROVIDERS: ATTEND Physician Assistant Medical
DX: B35.1 Tinea unguium (principal); Z79.899 Other long term (current) drug therapy
CPT/HCPCS: 36415; 82565; 84450; 84460

== ENCOUNTER 2017-07-31 08:00 | Outpatient (CLI) | payer MEDICARE, MEDICAID ==
[2017-07-31 18:30] LABS: BASOPHILS % (AUTO) 0.7 %; EOSINOPHILS # (AUTO) 0.1 10^3/uL (0.0-0.7); HGB - HEMOGLOBIN 13.1 g/dL (14.0-18.0); LYMPHOCYTES # (AUTO) 1.2 10^3/uL (1.5-3.5); LYMPHOCYTES % (AUTO) 25.8 %; MEAN CORPUSCULAR HEMOGLOBIN 31.8 pg (27.0-31.0); MEAN CORPUSCULAR HGB CONC 33.6 g/dL (32.0-36.0); MEAN CORPUSCULAR VOLUME 94.9 fL (80.0-94.0); MEAN PLATELET VOLUME 7.3 fL (7.4-11.4); MONOCYTES # (AUTO) 0.5 10^3/uL (0.0-1.0); MONOCYTES % (AUTO) 10.5 %; NEUTROPHILS # (AUTO) 2.9 10^3/uL (1.5-6.6); PLT - PLATELET COUNT 318 10^3/uL (130-450); RED BLOOD COUNT 4.11 10^6/uL (4.70-6.10); RED CELL DISTRIBUTION WIDTH 13.4 % (12.0-15.0); WHITE BLOOD COUNT 4.8 x10^3/uL (4.8-10.8)
[2017-07-31 18:54] LABS: THYROID STIMULATING HORMONE 1.2 uIU/mL (0.34-5.60)
[2017-07-31 19:01] LABS: % IRON SATURATION 20 % (20-50); ALBUMIN 4.1 g/dL (3.2-5.5); ALBUMIN/GLOBULIN RATIO 1.5 (1.0-2.2); ALKALINE PHOSPHATASE 61 IU/L (42-121); ALT ALANINE AMINOTRANSFERASE 15 IU/L (10-60); AST ASPARTATE AMINOTRANSFERASE 19 IU/L (10-42); BILIRUBIN,TOTAL 1.2 mg/dL (0.2-1.0); BUN - BLOOD UREA NITROGEN 10 mg/dL (6-20); CALCIUM 8.8 mg/dL (8.5-10.3); CARBON DIOXIDE - CO2 29 mmol/L (21-32); CHLORIDE 95 mmol/L (101-111); CHOLESTEROL 179 mg/dL; CREATININE 0.7 mg/dL (0.6-1.2); GFR - MDRD 110 (>89); GLUCOSE 99 mg/dL (70-100); HDL CHOLESTEROL 59 mg/dL; IRON 74 ug/dL (45-182); LDL CHOLESTEROL,CALCULATED 104 mg/dL; LDL/HDL RATIO 1.8 (<3.6); SODIUM 132 mmol/L (135-145); TOTAL IRON BINDING CAPACITY 361 ug/dL (250-450); TOTAL PROTEIN 6.9 g/dL (6.7-8.2); TRANSFERRIN 258 mg/dL (180-329); VLDL CHOLESTEROL 16 mg/dL
== END 2017-07-31 08:01 | disposition home or self-care (01) ==
LOC: LAB.S 08:00
PROVIDERS: ATTEND Nurse Practitioner Family
DX: I10 Essential (primary) hypertension (principal); D64.9 Anemia, unspecified; Z12.5 Encounter for screening for malignant neoplasm of prostate; N40.1 Benign prostatic hyperplasia with lower urinary tract symptoms
CPT/HCPCS: 36415; 80053; 80061; 82607; 83540; 84443; 84466; 85025; G0103; 83721; 84153

== ENCOUNTER 2017-08-08 08:00 | Outpatient (CLI) | payer MEDICARE, MEDICAID | END 2017-08-08 23:59 | LOC: LAB.R 08:00 | PROVIDERS: ATTEND Nurse Practitioner Family | DX: K92.2 Gastrointestinal hemorrhage, unspecified (principal) | CPT/HCPCS: 82270 ==

== ENCOUNTER 2018-08-06 08:00 | Outpatient (CLI) | payer MEDICARE, MEDICAID ==
[2018-08-06 18:10] LABS: BASOPHILS % (AUTO) 0.7 %; EOSINOPHILS # (AUTO) 0.1 10^3/uL (0.0-0.7); EOSINOPHILS % (AUTO) 2.7 %; HGB - HEMOGLOBIN 13.8 g/dL (14.0-18.0); LYMPHOCYTES # (AUTO) 1.5 10^3/uL (1.5-3.5); LYMPHOCYTES % (AUTO) 31.1 %; MEAN CORPUSCULAR HEMOGLOBIN 32.8 pg (27.0-31.0); MEAN CORPUSCULAR HGB CONC 34.6 g/dL (32.0-36.0); MEAN CORPUSCULAR VOLUME 94.9 fL (80.0-94.0); MEAN PLATELET VOLUME 7.7 fL (7.4-11.4); MONOCYTES # (AUTO) 0.5 10^3/uL (0.0-1.0); MONOCYTES % (AUTO) 9.6 %; NEUTROPHILS # (AUTO) 2.7 10^3/uL (1.5-6.6); NEUTROPHILS % (AUTO) 55.9 %; PLT - PLATELET COUNT 328 10^3/uL (130-450); RED CELL DISTRIBUTION WIDTH 12.5 % (12.0-15.0); WHITE BLOOD COUNT 4.8 x10^3/uL (4.8-10.8)
[2018-08-06 18:38] LABS: ALBUMIN 4.1 g/dL (3.2-5.5); ALBUMIN/GLOBULIN RATIO 1.6 (1.0-2.2); ALKALINE PHOSPHATASE 73 IU/L (42-121); ALT ALANINE AMINOTRANSFERASE 21 IU/L (10-60); AST ASPARTATE AMINOTRANSFERASE 25 IU/L (10-42); BILIRUBIN,TOTAL 1.3 mg/dL (0.2-1.0); BUN - BLOOD UREA NITROGEN 9 mg/dL (6-20); CALCIUM 8.7 mg/dL (8.5-10.3); CARBON DIOXIDE - CO2 29 mmol/L (21-32); CHLORIDE 97 mmol/L (101-111); CHOL/HDL RATIO 2.8 (<5.0); CHOLESTEROL 182 mg/dL; CREATININE 0.6 mg/dL (0.6-1.2); GFR - MDRD 131 (>89); GLUCOSE 103 mg/dL (70-100); HDL CHOLESTEROL 65 mg/dL; LDL CHOLESTEROL,CALCULATED 98 mg/dL; LDL/HDL RATIO 1.5 (<3.6); SODIUM 132 mmol/L (135-145); TOTAL PROTEIN 6.7 g/dL (6.7-8.2); VLDL CHOLESTEROL 19 mg/dL
[2018-08-06 18:49] LABS: PSA FREE 0.02 ng/mL (0.16-2.81)
[2018-08-06 18:51] LABS: PSA TOTAL 0.19 ng/mL (0.000-2.000)
[2018-08-06 18:59] LABS: HB2 TOTAL 14.4 g/dL; HEMOGLOBIN A1C 0.57 g/dL; HEMOGLOBIN A1C % 5.8 % (4.6-6.2)
== END 2018-08-06 23:59 | disposition home or self-care (01) ==
LOC: LAB.S 08:00
PROVIDERS: ATTEND Nurse Practitioner Family
DX: I10 Essential (primary) hypertension (principal); R73.01 Impaired fasting glucose; C61 Malignant neoplasm of prostate; L40.9 Psoriasis, unspecified
CPT/HCPCS: 36415; 80053; 80061; 83036; 83721; 84153; 84154; 84443; 85025

== ENCOUNTER 2019-03-14 09:49 | Outpatient (CLI) | payer MEDICARE, MEDICAID ==
[2019-03-14 17:59] LABS: BASOPHILS % (AUTO) 0.6 %; EOSINOPHILS # (AUTO) 0.1 10^3/uL (0.0-0.7); EOSINOPHILS % (AUTO) 2.3 %; HGB - HEMOGLOBIN 13.5 g/dL (14.0-18.0); LYMPHOCYTES # (AUTO) 1.6 10^3/uL (1.5-3.5); LYMPHOCYTES % (AUTO) 31.3 %; MEAN CORPUSCULAR HEMOGLOBIN 32.6 pg (27.0-31.0); MEAN CORPUSCULAR HGB CONC 33.4 g/dL (32.0-36.0); MEAN CORPUSCULAR VOLUME 97.6 fL (80.0-94.0); MEAN PLATELET VOLUME 9.2 fL (7.4-11.4); MONOCYTES # (AUTO) 0.5 10^3/uL (0.0-1.0); NEUTROPHILS % (AUTO) 56.2 %; PLT - PLATELET COUNT 347 10^3/uL (130-450); RED BLOOD COUNT 4.14 10^6/uL (4.70-6.10); RED CELL DISTRIBUTION WIDTH 11.8 % (12.0-15.0); WHITE BLOOD COUNT 5.2 x10^3/uL (4.8-10.8)
[2019-03-14 18:14] LABS: ALBUMIN 4.2 g/dL (3.2-5.5); ALBUMIN/GLOBULIN RATIO 1.7 (1.0-2.2); BILIRUBIN,TOTAL 1.6 mg/dL (0.2-1.0); CALCIUM 8.7 mg/dL (8.5-10.3); CREATININE 0.8 mg/dL (0.6-1.2); TOTAL PROTEIN 6.7 g/dL (6.7-8.2)
[2019-03-14 18:21] LABS: PSA FREE < 0.005 ng/mL (0.16-2.81)
== END 2019-03-14 09:50 | disposition home or self-care (01) ==
LOC: LAB.S 09:49
PROVIDERS: ATTEND Registered Nurse
DX: F10.10 Alcohol abuse, uncomplicated (principal); D64.9 Anemia, unspecified; N40.1 Benign prostatic hyperplasia with lower urinary tract symptoms
CPT/HCPCS: 36415; 80053; 82607; 84153; 84154; 85025

== ENCOUNTER 2019-10-23 10:09 | Outpatient (CLI) | payer MEDICARE, MEDICAID ==
[2019-10-23 15:21] LABS: BASOPHILS % (AUTO) 0.5 %; EOSINOPHILS # (AUTO) 0.1 10^3/uL (0.0-0.7); EOSINOPHILS % (AUTO) 2.2 %; HGB - HEMOGLOBIN 14.1 g/dL (14.0-18.0); LYMPHOCYTES # (AUTO) 1.7 10^3/uL (1.5-3.5); LYMPHOCYTES % (AUTO) 27.9 %; MEAN CORPUSCULAR HEMOGLOBIN 34.3 pg (27.0-31.0); MEAN CORPUSCULAR HGB CONC 34.9 g/dL (32.0-36.0); MEAN CORPUSCULAR VOLUME 98.3 fL (80.0-94.0); MONOCYTES # (AUTO) 0.6 10^3/uL (0.0-1.0); NEUTROPHILS # (AUTO) 3.5 10^3/uL (1.5-6.6); NEUTROPHILS % (AUTO) 58.9 %; PLT - PLATELET COUNT 337 10^3/uL (130-450); RED BLOOD COUNT 4.11 10^6/uL (4.70-6.10); RED CELL DISTRIBUTION WIDTH 11.8 % (12.0-15.0); WHITE BLOOD COUNT 5.9 x10^3/uL (4.8-10.8)
[2019-10-23 15:50] LABS: CALCIUM 8.6 mg/dL (8.5-10.3); CREATININE 0.8 mg/dL (0.6-1.2)
== END 2019-10-23 10:10 | disposition home or self-care (01) ==
LOC: LAB.S 10:09
PROVIDERS: ATTEND Registered Nurse
DX: I10 Essential (primary) hypertension (principal); D64.9 Anemia, unspecified; E78.5 Hyperlipidemia, unspecified
CPT/HCPCS: 36415; 80048; 85025

== ENCOUNTER 2020-06-15 10:45 | Outpatient (CLI) | payer MEDICARE, MEDICAID ==
[2020-06-15 15:04] LABS: BASOPHILS % (AUTO) 0.5 %; EOSINOPHILS # (AUTO) 0.1 10^3/uL (0.0-0.7); EOSINOPHILS % (AUTO) 1.3 %; LYMPHOCYTES # (AUTO) 1.6 10^3/uL (1.5-3.5); LYMPHOCYTES % (AUTO) 25.7 %; MEAN CORPUSCULAR HEMOGLOBIN 33.2 pg (27.0-31.0); MEAN CORPUSCULAR HGB CONC 34.9 g/dL (32.0-36.0); MEAN PLATELET VOLUME 8.7 fL (7.4-11.4); MONOCYTES # (AUTO) 0.6 10^3/uL (0.0-1.0); MONOCYTES % (AUTO) 10.1 %; NEUTROPHILS # (AUTO) 3.8 10^3/uL (1.5-6.6); NEUTROPHILS % (AUTO) 61.9 %; PLT - PLATELET COUNT 379 10^3/uL (130-450); RED BLOOD COUNT 4.22 10^6/uL (4.70-6.10); RED CELL DISTRIBUTION WIDTH 11.3 % (12.0-15.0); WHITE BLOOD COUNT 6.1 x10^3/uL (4.8-10.8)
[2020-06-15 15:17] LABS: ALBUMIN 4.1 g/dL (3.2-5.5); ALBUMIN/GLOBULIN RATIO 1.6 (1.0-2.2); ALKALINE PHOSPHATASE 75 IU/L (42-121); ALT ALANINE AMINOTRANSFERASE 18 IU/L (10-60); AST ASPARTATE AMINOTRANSFERASE 19 IU/L (10-42); BILIRUBIN,TOTAL 1.3 mg/dL (0.2-1.0); BUN - BLOOD UREA NITROGEN 9 mg/dL (6-20); CARBON DIOXIDE - CO2 28 mmol/L (21-32); CHLORIDE 92 mmol/L (101-111); CHOL/HDL RATIO 2.5 (<5.0); CHOLESTEROL 158 mg/dL; CREATININE 0.7 mg/dL (0.6-1.2); GLUCOSE 100 mg/dL (70-100); HDL CHOLESTEROL 64 mg/dL; LDL CHOLESTEROL,CALCULATED 77 mg/dL; LDL/HDL RATIO 1.2 (<3.6); TOTAL PROTEIN 6.7 g/dL (6.7-8.2); VLDL CHOLESTEROL 17 mg/dL
== END 2020-06-15 10:46 | disposition home or self-care (01) ==
LOC: LAB.S 10:45
PROVIDERS: ATTEND Registered Nurse
DX: I10 Essential (primary) hypertension (principal); Z85.46 Personal history of malignant neoplasm of prostate; F10.10 Alcohol abuse, uncomplicated; R73.01 Impaired fasting glucose; D64.9 Anemia, unspecified; E78.5 Hyperlipidemia, unspecified; K92.2 Gastrointestinal hemorrhage, unspecified; N40.1 Benign prostatic hyperplasia with lower urinary tract symptoms; C61 Malignant neoplasm of prostate
CPT/HCPCS: 36415; 80053; 80061; 83721; 84153; 84443; 85025

== ENCOUNTER 2021-01-13 11:01 | Outpatient (CLI) | payer MEDICARE, MEDICAID ==
[2021-01-13 14:42] LABS: BASOPHILS % (AUTO) 0.5 %; EOSINOPHILS # (AUTO) 0.1 10^3/uL (0.0-0.7); EOSINOPHILS % (AUTO) 1.3 %; HCT - HEMATOCRIT 40.9 % (42.0-52.0); HGB - HEMOGLOBIN 13.6 g/dL (14.0-18.0); LYMPHOCYTES # (AUTO) 1.5 10^3/uL (1.5-3.5); MEAN CORPUSCULAR HEMOGLOBIN 32.1 pg (27.0-31.0); MEAN CORPUSCULAR HGB CONC 33.3 g/dL (32.0-36.0); MEAN CORPUSCULAR VOLUME 96.5 fL (80.0-94.0); MEAN PLATELET VOLUME 8.8 fL (7.4-11.4); MONOCYTES # (AUTO) 0.5 10^3/uL (0.0-1.0); MONOCYTES % (AUTO) 9.8 %; NEUTROPHILS # (AUTO) 3.3 10^3/uL (1.5-6.6); NEUTROPHILS % (AUTO) 59.9 %; PLT - PLATELET COUNT 339 10^3/uL (130-450); RED BLOOD COUNT 4.24 10^6/uL (4.70-6.10); WHITE BLOOD COUNT 5.5 x10^3/uL (4.8-10.8)
[2021-01-13 14:45] LABS: CREATININE 0.7 mg/dL (0.6-1.2); POTASSIUM 3.9 mmol/L (3.5-5.0)
[2021-01-13 15:01] LABS: THYROID STIMULATING HORMONE 1.61 uIU/mL (0.34-5.60)
== END 2021-01-13 11:02 | disposition home or self-care (01) ==
LOC: LAB.S 11:01
PROVIDERS: ATTEND Registered Nurse
DX: R53.83 Other fatigue (principal); Z85.46 Personal history of malignant neoplasm of prostate
CPT/HCPCS: 36415; 80048; 84153; 84443; 85025

== ENCOUNTER 2021-08-17 09:53 | Outpatient (CLI) | payer MEDICARE, MEDICAID ==
[2021-08-17 14:58] LABS: CALCIUM 8.6 mg/dL (8.5-10.3); CREATININE 0.7 mg/dL (0.6-1.2); POTASSIUM 4.1 mmol/L (3.5-5.0)
== END 2021-08-17 09:54 | disposition home or self-care (01) ==
LOC: LAB.S 09:53
PROVIDERS: ATTEND Registered Nurse
DX: C61 Malignant neoplasm of prostate (principal); R73.01 Impaired fasting glucose
CPT/HCPCS: 36415; 80048; 84153

== ENCOUNTER 2022-05-03 09:42 | Outpatient (CLI) | payer MEDICARE, MEDICAID ==
[2022-05-03 14:26] LABS: BASOPHILS % (AUTO) 0.6 %; EOSINOPHILS # (AUTO) 0.1 10^3/uL (0.0-0.7); EOSINOPHILS % (AUTO) 2.1 %; HCT - HEMATOCRIT 41.7 % (42.0-52.0); LYMPHOCYTES # (AUTO) 1.7 10^3/uL (1.5-3.5); LYMPHOCYTES % (AUTO) 27.5 %; MEAN CORPUSCULAR HEMOGLOBIN 31.9 pg (27.0-31.0); MEAN CORPUSCULAR HGB CONC 33.6 g/dL (32.0-36.0); MEAN PLATELET VOLUME 8.6 fL (7.4-11.4); MONOCYTES # (AUTO) 0.6 10^3/uL (0.0-1.0); MONOCYTES % (AUTO) 9.8 %; NEUTROPHILS # (AUTO) 3.8 10^3/uL (1.5-6.6); NEUTROPHILS % (AUTO) 59.2 %; PLT - PLATELET COUNT 398 10^3/uL (130-450); RED BLOOD COUNT 4.39 10^6/uL (4.70-6.10); RED CELL DISTRIBUTION WIDTH 11.8 % (12.0-15.0); WHITE BLOOD COUNT 6.3 x10^3/uL (4.8-10.8)
[2022-05-03 15:05] LABS: ALBUMIN 4.3 g/dL (3.2-5.5); ALBUMIN/GLOBULIN RATIO 1.3 (1.0-2.2); ALKALINE PHOSPHATASE 75 IU/L (42-121); ALT ALANINE AMINOTRANSFERASE 25 IU/L (10-60); AST ASPARTATE AMINOTRANSFERASE 27 IU/L (10-42); BILIRUBIN,TOTAL 1.5 mg/dL (0.2-1.0); BUN - BLOOD UREA NITROGEN 9 mg/dL (6-20); CARBON DIOXIDE - CO2 31 mmol/L (21-32); CHLORIDE 86 mmol/L (101-111); CHOL/HDL RATIO 3.2 (<5.0); CHOLESTEROL 171 mg/dL; CREATININE 0.8 mg/dL (0.6-1.2); GFR - MDRD 93 (>89); GLUCOSE 110 mg/dL (70-100); HDL CHOLESTEROL 53 mg/dL; LDL CHOLESTEROL,CALCULATED 95 mg/dL; LDL/HDL RATIO 1.8 (<3.6); POTASSIUM 3.5 mmol/L (3.5-5.0); SODIUM 126 mmol/L (135-145); TOTAL PROTEIN 7.5 g/dL (6.7-8.2); TRIGLYCERIDES 114 mg/dL; VLDL CHOLESTEROL 23 mg/dL
[2022-05-03 21:13] LABS: ESTIMATED AVERAGE GLUCOSE 111 mg/dL (70-100); HEMOGLOBIN A1c% 5.5 % (4.27-6.07)
== END 2022-05-03 09:43 | disposition home or self-care (01) ==
LOC: LAB.S 09:42
PROVIDERS: ATTEND Registered Nurse
DX: E78.5 Hyperlipidemia, unspecified (principal); Z79.899 Other long term (current) drug therapy; R73.01 Impaired fasting glucose; Z85.46 Personal history of malignant neoplasm of prostate
CPT/HCPCS: 36415; 80053; 80061; 83036; 85025; G0103; 83721; 84153

== ENCOUNTER 2022-10-28 08:00 | Outpatient (CLI) | payer MEDICARE, MEDICAID ==
[2022-10-28 17:02] LABS: BILIRUBIN,URINE NEGATIVE (NEGATIVE); GLUCOSE, URINE (UA) NEGATIVE (NEGATIVE); KETONES,URINE (UA) NEGATIVE (NEGATIVE); LEUKOCYTE ESTERASE, URINE NEGATIVE (NEGATIVE); NITRITE,URINE NEGATIVE (NEGATIVE); OCCULT BLOOD,URINE NEGATIVE (NEGATIVE); PROTEIN,URINE NEGATIVE (NEGATIVE); UROBILINOGEN,URINE 0.2 (NORMAL) E.U./dL (NORMAL)
[2022-10-28 17:05] LABS: CLARITY,URINE CLEAR (CLEAR)
[2022-10-28 17:44] LABS: BACTERIA,URINE Rare /HPF (None Seen); RBC,URINE 0-5 /HPF (0-5); SQUAMOUS EPITHELIAL CELL,UR RARE Squamous (<= Few); WBC,URINE 0-3 /HPF (0-3)
== END 2022-10-28 23:59 | disposition home or self-care (01) ==
LOC: LAB 08:00
PROVIDERS: ATTEND Urology
DX: R39.14 Feeling of incomplete bladder emptying (principal); Z85.46 Personal history of malignant neoplasm of prostate
CPT/HCPCS: 81001; 87086

== ENCOUNTER 2022-12-08 10:45 | Outpatient (CLI) | payer MEDICARE, MEDICAID ==
[2022-12-08 14:26] LABS: BASOPHILS % (AUTO) 0.6 %; EOSINOPHILS # (AUTO) 0.1 10^3/uL (0.0-0.7); EOSINOPHILS % (AUTO) 2.4 %; HCT - HEMATOCRIT 40.9 % (42.0-52.0); HGB - HEMOGLOBIN 13.9 g/dL (14.0-18.0); LYMPHOCYTES # (AUTO) 1.4 10^3/uL (1.5-3.5); LYMPHOCYTES % (AUTO) 28.2 %; MEAN CORPUSCULAR HEMOGLOBIN 32.3 pg (27.0-31.0); MEAN CORPUSCULAR VOLUME 94.9 fL (80.0-94.0); MEAN PLATELET VOLUME 9.1 fL (7.4-11.4); MONOCYTES # (AUTO) 0.6 10^3/uL (0.0-1.0); MONOCYTES % (AUTO) 11.9 %; NEUTROPHILS # (AUTO) 2.8 10^3/uL (1.5-6.6); NEUTROPHILS % (AUTO) 56.5 %; PLT - PLATELET COUNT 338 10^3/uL (130-450); RED BLOOD COUNT 4.31 10^6/uL (4.70-6.10); RED CELL DISTRIBUTION WIDTH 11.9 % (12.0-15.0)
[2022-12-08 14:41] LABS: ALBUMIN 4.2 g/dL (3.2-5.5); ALBUMIN/GLOBULIN RATIO 1.7 (1.0-2.2); ALKALINE PHOSPHATASE 57 IU/L (42-121); ALT ALANINE AMINOTRANSFERASE 13 IU/L (10-60); AST ASPARTATE AMINOTRANSFERASE 16 IU/L (10-42); BILIRUBIN,TOTAL 1.8 mg/dL (0.2-1.0); BUN - BLOOD UREA NITROGEN 12 mg/dL (6-20); CALCIUM 8.8 mg/dL (8.5-10.3); CARBON DIOXIDE - CO2 30 mmol/L (21-32); CHLORIDE 96 mmol/L (101-111); CHOL/HDL RATIO 2.5 (<5.0); CHOLESTEROL 140 mg/dL; CREATININE 0.7 mg/dL (0.6-1.3); GFR - MDRD 108 (>89); GLUCOSE 104 mg/dL (74-104); HDL CHOLESTEROL 57 mg/dL; LDL CHOLESTEROL,CALCULATED 68 mg/dL; LDL/HDL RATIO 1.2 (<3.6); POTASSIUM 3.7 mmol/L (3.5-4.5); SODIUM 130 mmol/L (135-145); TOTAL PROTEIN 6.7 g/dL (6.4-8.9); TRIGLYCERIDES 77 mg/dL (48-352); VLDL CHOLESTEROL 15 mg/dL
== END 2022-12-08 10:46 | disposition home or self-care (01) ==
LOC: LAB.S 10:45
PROVIDERS: ATTEND Registered Nurse
DX: Z13.228 Encounter for screening for other metabolic disorders (principal); Z13.220 Encounter for screening for lipoid disorders; Z13.0 Encounter for screening for diseases of the blood and blood-forming organs and certain disorders involving the immune mechanism; Z85.46 Personal history of malignant neoplasm of prostate; N52.9 Male erectile dysfunction, unspecified
CPT/HCPCS: 36415; 80053; 80061; 83721; 84153; 85025

== ENCOUNTER 2023-08-31 11:13 | Outpatient (CLI) | payer MEDICARE, MEDICAID ==
[2023-08-31 14:47] LABS: BASOPHILS % (AUTO) 0.5 %; EOSINOPHILS # (AUTO) 0.1 10^3/uL (0.0-0.7); EOSINOPHILS % (AUTO) 1.6 %; HCT - HEMATOCRIT 39.9 % (42.0-52.0); HGB - HEMOGLOBIN 13.4 g/dL (14.0-18.0); LYMPHOCYTES # (AUTO) 1.5 10^3/uL (1.5-3.5); LYMPHOCYTES % (AUTO) 23.3 %; MEAN CORPUSCULAR HEMOGLOBIN 32.4 pg (27.0-31.0); MEAN CORPUSCULAR HGB CONC 33.6 g/dL (32.0-36.0); MEAN CORPUSCULAR VOLUME 96.4 fL (80.0-94.0); MEAN PLATELET VOLUME 8.7 fL (7.4-11.4); MONOCYTES # (AUTO) 0.6 10^3/uL (0.0-1.0); MONOCYTES % (AUTO) 9.5 %; NEUTROPHILS % (AUTO) 64.8 %; PLT - PLATELET COUNT 341 10^3/uL (130-450); RED BLOOD COUNT 4.14 10^6/uL (4.70-6.10); RED CELL DISTRIBUTION WIDTH 11.9 % (12.0-15.0); WHITE BLOOD COUNT 6.2 x10^3/uL (4.8-10.8)
[2023-08-31 15:32] LABS: ALBUMIN 4.3 g/dL (3.2-5.5); ALBUMIN/GLOBULIN RATIO 1.9 (1.0-2.2); ALKALINE PHOSPHATASE 69 IU/L (42-121); ALT ALANINE AMINOTRANSFERASE 14 IU/L (10-60); AST ASPARTATE AMINOTRANSFERASE 17 IU/L (10-42); BILIRUBIN,TOTAL 1.8 mg/dL (0.2-1.0); BUN - BLOOD UREA NITROGEN 11 mg/dL (6-20); CALCIUM 9.5 mg/dL (8.5-10.3); CARBON DIOXIDE - CO2 28 mmol/L (21-32); CHLORIDE 93 mmol/L (101-111); CHOL/HDL RATIO 2.7 (<5.0); CHOLESTEROL 160 mg/dL; CREATININE 0.8 mg/dL (0.6-1.3); GFR - MDRD 93 (>89); GLUCOSE 102 mg/dL (74-104); HDL CHOLESTEROL 60 mg/dL; LDL CHOLESTEROL,CALCULATED 80 mg/dL; LDL/HDL RATIO 1.3 (<3.6); POTASSIUM 3.9 mmol/L (3.5-4.5); SODIUM 127 mmol/L (135-145); TOTAL PROTEIN 6.6 g/dL (6.4-8.9); TRIGLYCERIDES 100 mg/dL (48-352); VLDL CHOLESTEROL 20 mg/dL
[2023-08-31 15:36] LABS: THYROID STIMULATING HORMONE 1.12 uIU/mL (0.34-5.60)
[2023-08-31 21:19] LABS: ESTIMATED AVERAGE GLUCOSE 120 mg/dL (70-100); HEMOGLOBIN A1c% 5.8 % (4.27-6.07)
== END 2023-08-31 11:14 | disposition home or self-care (01) ==
LOC: LAB.S 11:13
PROVIDERS: ATTEND Registered Nurse
DX: I10 Essential (primary) hypertension (principal); R73.01 Impaired fasting glucose; N40.1 Benign prostatic hyperplasia with lower urinary tract symptoms; Z13.228 Encounter for screening for other metabolic disorders; Z13.220 Encounter for screening for lipoid disorders; Z13.29 Encounter for screening for other suspected endocrine disorder; Z13.0 Encounter for screening for diseases of the blood and blood-forming organs and certain disorders involving the immune mechanism
CPT/HCPCS: 36415; 80053; 80061; 83036; 83721; 84153; 84443; 85025